=== PATIENT | male | born 1940 | race Caucasian/White ===

== ENCOUNTER 2023-05-07 14:43 | Emergency (ER) | payer MEDICARE, SELFPAY ==
--- NOTE | ~2023-05-07 | XR_ITS ---
EXAMINATION: XR HAND, LEFT CLINICAL INFORMATION: Positive fracture at urgent care COMPARISON: None available. TECHNIQUE: PA, lateral, and oblique views of the left hand. FINDINGS: No acute fracture or dislocation. Arthritis at the IP joints, first MCP and RESIDENTIAL joints with joint space narrowing and osteophyte formation. There is also some joint space narrowing at the second MCP joint. Soft tissues are unremarkable. XR/XR hand LT min 3V IMPRESSION: Arthritis. No fracture or dislocation.
[2023-05-07 15:17] VITALS: BP 174/75; PULSE 78; RESP 12; TEMP 36.4; O2SAT 98; BMI 25.3
--- NOTE | 2023-05-07 16:09 | ED_ITS ---
HPI - General Adult General Chief complaint: Wound/Laceration Stated complaint: open fx l ring finger Time Seen by Provider: 05/07/23 14:54 Source: patient Mode of arrival: ambulatory Limitations: no limitations History of Present Illness HPI narrative: Patient is an 83-year-old right-hand dominant male presenting to the emergency department from urgent care with a laceration and ecchymosis to left 4th finger. Patient states that he was mowing his lawn up hill when the lawnmower began to tip. He states that instead of letting go of the handle he attempted to correct the lawnmower and in the process got his finger caught between the handle and the safety stop mechanism of the lawnmower. He continued to mow his lawn until it was completed. He was evaluated urgent care where he was told that he had a distal phalanx fracture and was referred to the ED. He reports his tetanus is up-to-date, has had the vaccine within the last year. Denies any other injuries. MD complaint: Finger injury Onset (ago): hour(s) Location: upper extremity Severity: moderate Quality: aching Pain Consistency: constant Relieving factors: rest Exacerbating factors: movement Associated symptoms: denies other symptoms Treatments prior to arrival: none Related Data Previous Rx's Medication Instructions Recorded amoxicillin 875 mg-potassium 1 tab PO BID #14 tabs 05/07/23 clavulanate 125 mg tablet Allergies Allergy/AdvReac Type Severity Reaction Status Date / Time morphine [MORPHINE] Allergy Unknown HALLUCINATI Unverified 07/03/20 17:23 ONS Review of Systems Review of Systems: As per HPI. Yes all other systems are reviewed and are negative Constitutional: Constitutional: Reports as per HPI [facility] Social History Social History Alcohol intake: current Alcohol intake frequency: 0-2 drinks per day Alcohol type: wine Physical Exam ED Vital Signs: Vital Signs - 24 hr 05/07/23 15:17 Temperature 97.5 F Pulse Rate 78 Respiratory Rate 12 Blood Pressure 174/75 H Pulse Oximetry 98 Oxygen Delivery Method Room Air BMI result Body Mass Index 25.3 Vital signs have been reviewed and appear to be correct. Blood pressure e levated, likely secondary to pain. Heart rate normal. Respiratory rate normal. Temperature normal. Oxygen saturation normal. Const General: cooperative, healthy appearing and no acute distress Orientation/consciousness: oriented to person, oriented to place, oriented to time and patient oriented x3 Limitations: no limitations HENMT Head: Yes normocephalic and Yes atraumatic Ears: external ears normal General nose exam: Normal external nose present Face and sinus: Yes face symmetric Mouth: oropharynx normal and moist mucous membranes Throat: Yes uvula midline Eyes Pupils: Equal, round and reactive pupils present Neck Neck: Yes normal visual inspection and Yes supple Resp Effort & Inspection: normal respiratory effort and able to speak in complete sentences Auscultation: clear to auscultation bilaterally Cardio Rate: regular rate Rhythm: regular rhythm Heart sounds: S1 normal heart sound present and S2 normal heart sound present GI Palpation (GI): Soft to palpation and nontender Auscultation: normoactive bowel sounds General: Yes no CVA tenderness Back/Spine/Pelvis Back: no CVA tenderness Skin General skin exam: elasticity normal and turgor normal Neuro General: oriented to person, oriented to place, oriented to time, patient oriented x3, moves all extremities, no focal motor deficits and CN's II-XI intact bilaterally Cranial nerves: Yes Equal, round and reactive pupils present Cognition (Neuro): normal cognition Extrem General: Yes full ROM, Yes no pedal edema and Yes no calf tenderness Left upper extremity: hand Details: normal capillary refill, neuromotor exam normal, neurosensory exam normal, tendon exam normal, tenderness Location: of the 4th digit Location: at the distal phalanx, vascular exam Details: normal capillary refill, normal ROM of fingers and laceration 4th digit dorsal aspect distal Details: linear and superficial Psych Mental Status: mental status grossly normal Affect: normal affect Thought process: Normal thought process present Procedures Laceration Laceration 1: Site: hand (4th finger) Side (If applicable): left Size (cm): 1 Description: linear Depth: simple, single layer Local Anesthetic: lidocaine 1% Amount of anesthesia used (mL): 1 Pre-repair: wound explored, irrigated extensively and deep structures intact Skin layer closed with: other (prolene) Size (cm): 5-0 (3 sutures 5.0, suture closest to nail 6.0) Number of sutures: 4 Technique: simple, interrupted Medical Decision Making Medical Decision Making MDM Narrative: Patient is an 83-year-old right-hand dominant male presenting to the emergency department from urgent care with a laceration and ecchymosis to left 4th finger. On exam patient is awake, A+Ox3, VS WNL, afebrile, normal neurological exam without focal deficits, laceration to dorsal aspect of distal tip of left 4th finger, ecchymosis to palmar aspect of distal tip of left 4th finger, tenderness to distal tip as well, normal capillary refill. Given reported symptoms and physical exam findings, initial differential includes open fracture, laceration. X-ray here notable for arthritis, no fracture or dislocation. My interpreta tion is questionable distal phalanx fracture of left 4th finger. Case discussed with geovanni Juarez. She feels blood cultures or washout unnecessary at this time but does advise one dose of IV abx here, then discharge home on PO antibiotics with outpatient ortho follow up. Unable to obtain IV access after multiple attempts by nursing, will medicate patient with p.o. Augmentin in the ED prior to discharge. Laceration repaired as per procedure note, patient advised to have sutures removed in 10-14 days. All results discussed with patient and all questions answered. Return precautions discussed at bedside. Instructed patient to follow-up with PCP as well. Patient verbalized understand ing of an agreement with plan. Differential Diagnosis Differential Diagnoses: The differential diagnosis associated with the presentation includes As per MDM. Consult Healthcare Provider Management of the patient was discussed with: Paper Cup Handle Machine Operator (geovanni Juarez) Lab Data [facility] Lab Attestation statement: I reviewed the patient's lab results. As per [facility] 05/07/23 16:41 05/07/23 16:41 Labs: Lab Results 05/07/23 05/07/23 Range/Units 16:41 16:41 Sodium 141 (135-145) mmol/L Potassium 4.9 (3.3-5.1) mmol/L Chloride 105 (96-108) mmol/L Carbon Dioxide 24 (22-29) mmol/L Anion Gap 17 (12-20) BUN 28 H (9-16) mg/dL Creatinine 0.94 (0.5-1.4) mg/dL Estim Creat Clear Calc 52.7 Estimated GFR > 60 Random Glucose 97 (60-115) mg/dL Lactic Acid 1.3 (0.5-2.0) mmol/L Calcium 10.3 H (8.4-10.2) mg/dL Independent Interpretation I performed an independent interpretation of an: Plain X-Ray Interpretation: Possible distal phalanx fracture of left 4th finger Radiology Impression Discussion of test interpretation with radiology: I have reviewed the radiologist's reading. Radiologist Impression: FINDINGS: No acute fracture or dislocation. Arthritis at the IP joints, first MCP and LONGTERM joints with joint space narrowing and osteophyte formation. There is also some joint space narrowing at the second MCP joint. Soft tissues are unremarkable.? XR/XR hand LT min 3V IMPRESSION: Arthritis. No fracture or dislocation. External Record Review External record reviewed: Inpatient record, Office record and Outpatient record Prescription Management I considered prescription management with: Antibiotic Discharge Plan Discharge Clinical Impression: Crushing injury of distal finger, Laceration Patient Disposition: Home, Self-Care Instructions: Laceration (DC), Crush Injury (ED) Additional Instructions: You have been evaluated in the emergency department today for a laceration and crush injury to your left 4th finger. Your x-ray here did not show evidence of a fracture. Your laceration was repaired in the emergency department with sutures. Please keep the area surrounding the laceration clean and dry and keep dressing in place for the next 24 hours. After that please change the dressing and assess the wound daily. Keep the area out of direct sunlight for the next 6 months to help prevent scarring. You should have the sutures removed in 10-14 days. If you develop fever, redness, swelling at the site of your laceration, or thick yellow drainage please come back to the ER for a wound check. Please contact orthopedics for follow up appointment. Prescriptions: New amoxicillin-pot clavulanate 875-125 mg tablet 1 tab PO BID Qty: 14 0RF Referrals: [facility] [place] [facility] [Provider Group]
--- OUTSIDE RECORDS SUMMARY | 2023-05-07 16:39 | XMS_ITS | Continuity of Care Document ---
Author Name Unknown Organization [facility] Address [address] [place] [address]- Care Team Providers Care Doughnut Batter Mixer Name Role Phone Binu Campos MD Primary Care Physician [phone] [place] [facility] [place]s): 11/24/22 - 12/24/22 [facility] [address] [place], [place] [address] Attending Physician: Admtr, Ar8 Allergies, Adverse Reactions, Alerts Substance Reaction Severity Status morphine Active Immunizations Given and Recorded Vaccine Date Status Refusal Reason influenza virus vaccine, inactivated 08/10/22 Jeronimo rded influenza virus vaccine, inactivated 07/28/21 Jeronimo rded influenza virus vaccine, inactivated 07/18/20 Jeronimo rded influenza virus vaccine, inactivated 1 08/31/18 Re corded influenza virus vaccine, inactivated 08/23/16 Jeronimo rded influenza virus vaccine, inactivated 2 08/12/15 Gi navjot influenza virus vaccine, inactivated 08/01/14 Jeronimo rded influenza virus vaccine, inactivated 07/31/14 Jeronimo rded influenza virus vaccine, inactivated 3 07/23/13 Gi navjot influenza virus vaccine, inactivated 4 06/17/12 Gi navjot influenza virus vaccine, inactivated 5 07/22/11 Gi navjot influenza virus vaccine, inactivated 6 07/02/10 Gi navjot [id number] 12y+ bivalent booster vax 06/28/22 Recorded SARS-CoV-2 mRNA ([id number]) vax 01/28/22 Recorded SARS-CoV-2 (COVID-19) mRNA BNT-162b2 vac 07/28/21 Recorded SARS-CoV-2 (COVID-19) mRNA BNT-162b2 vac 11/10/20 Recorded pneumococcal 13-valent vaccine 09/12/19 Recorded pneumococcal 13-valent vaccine 7 08/13/15 Recorded Influenza Virus Vaccine (oldterm) 08/20/19 Recorde d Influenza Virus Vaccine (oldterm) 8 09/07/06 Given tetanus/diphtheria/pertussis, acel(Tdap) 04/11/13 Recorded Pneumococcal Poly (PPV23) (oldterm) 09/23/06 Given tetanus-diphtheria toxoids (Td) 9 09/23/06 Given 1Result Comment: [11/27/2018] Meraryy 2Result Comment: [08/12/2015] given w/o incident 3Result Comment: [07/23/2013] given w/out incident 4Admin Note: vis sheet given. 5Admin Note: given w/out incident/VIS given 6Admin Note: given by Jaki [facility] 8Admin Note: WORK 9Admin Note: [facility] Medications amLODIPine-benazepril 5 mg-20 mg oral capsule See Instructions, 1 capsule By Mouth twice Daily, 0 Refills, Maintenance, 10/22/15 15:49:57, Capsule Start Date: 10/22/15 Status: Ordered atorvastatin 80 mg oral tablet 1 tablet = 80 mg, By Mouth, Daily, # 30 tablet, 0 Refills, Maintenance, Tablet Start Date: 11/25/17 Status: Ordered CPAP with supplies: mask, tubing, filters, head gear, chin strap, and water chamber CPAP with supplies: mask, tubing, filters, head gear, chin strap, and water chamber, See Instructions, # 1 each, Refills 12, Tot. Refills 12, Maintenance, use as directed in home diagnosis: obstructive sleep apnea length of need: lifetime, 09/03... Start Date: 09/03/15 Status: Ordered duloxetine 30 mg oral enteric coated capsule 1 capsule, By Mouth, Daily, # 90 capsule, 3 Refills, [email or web address], 165.1, cm, 03/30/22 14:01:00 EDT, Height Start Date: 04/20/22 Status: Ordered levothyroxine 0.025 mg oral tablet 1.5 tablet, By Mouth, Daily, # 135 tablet, 3 Refills, Maintenance, 08/11/22 9:23:00 EDT, [email or web address], 165.1, cm, 03/30/22 14:01:00 EDT, Height Start Date: 08/11/22 Status: Ordered MiraLax oral powder for reconstitution = 17 Gm, By Mouth, Daily, dissolve in water before taking, # 255 Gm, 0 Refills, Maintenance, 11/25/17 13:38:55, REC Powder Start Date: 11/25/17 Status: Ordered Multivitamin With Minerals See Instructions, one tablet By Mouth daily, 0 Refills, Maintenance, 03/22/16 11:09:13 Start Date: 03/22/16 Status: Ordered omeprazole 20 mg oral enteric coated capsule 1 capsule = 20 mg, By Mouth, 2 times a day, # 60 each, 0 Refills, Maintenance, EC Capsule Start Date: 08/17/13 Status: Ordered Problem List Condition Confirmation Course Effective Dates Status H ealth Status Informant Cancer of prostate Confirmed Active Carotid artery stenosis Confirmed Active Chronic sinusitis Confirmed Active CVA - Cerebrovascular accident Confirmed Active Gastroesophageal reflux disease with hiatal hernia Confirmed Active Hyperglycemia Confirmed Active Hyperlipidemia Confirmed Active Hypertension Confirmed Active Hypothyroidism Confirmed Active Irritable bowel Confirmed Active Lumbar radiculopathy Confirmed Active Lumbar spinal stenosis Confirmed Active Patent foramen ovale Confirmed Active Polyp of colon Confirmed Active Prostatectomy Confirmed Active Sleep apnea Confirmed Active Social History Social History Type Response Smoking Status Never smoker; Tobacc o user in household: No entered on: 02/11/14 Sex Hospital Consult note * Event Display: Inpatient Consult Note, Non-BH Authored Date: Note * Event Display: Non BH Lab Results Authored Date: * Event Display: Non BH Lab Results Authored Date: * Event Display: CT Scan Neck, Non- BH Authored Date: * Event Display: Non BH Lab Results Authored Date: * Event Display: Cardiology Office Note, Non-BH Authored Date: * Event Display: Non BH Cardiovascular Results Authored Date: * Event Display: Cardiology Office Note, Non-BH Authored Date: * Event Display: Non BH Cardiovascular Results Authored Date: * Flores Singh: PERFORM Event Display: Radiology Results Scanned Authored Date: [id number] * Flores Singh: PERFORM Event Display: Radiology Results Scanned Authored Date: [id number] * Flores Tong: PERFORM Event Display: Radiology Results Scanned Authored Date: [id number] * Bee Fournier: PERFORM Event Display: Cardiovascular Results Scanned Authored Date: Cardiology Consult note * Event Display: Consult Note Cardiology Authored Date: Patient Care team information Care Team Personnel Name: Binu Campos MD Position: [facility] Primary Care Physician Member Role: PCP Address: Address: [address] [place] [address] Adult & [place] [address]- Care Team Related Persons Name: COURTNEY LLANES Address: home [address] [place] [id number]
--- OUTSIDE RECORDS SUMMARY | 2023-05-07 16:39 | XMS_ITS | Continuity of Care Document ---
Author Name Unknown Organization [facility] Address [address] [place] [address]- Care Team Providers Care Box Cutter Name Role Phone Binu Campos MD Primary Care Physician [phone] [place] [facility] [place]19 [facility] [address] [place] [address]- [facility] Encounter Diagnosis CVA - Cerebrovascular accident(Discharge Diagnosis) - 12/03/19 Cancer of prostate(Discharge Diagnosis) - 12/03/19 Chronic sinusitis(Discharge Diagnosis) - 12/03/19 Gastroesophageal reflux disease with hiatal hernia(Discharge Diagnosis) - 12/03/19 Irritable bowel(Discharge Diagnosis) - 12/03/19 Attending Physician: Biun Campos MD Allergies, Adverse Reactions, Alerts Substance Reaction Severity Status morphine Active Immunizations Given and Recorded Vaccine Date Status Refusal Reason pneumococcal 13-valent vaccine 09/12/19 Recorded pneumococcal 13-valent vaccine 1 08/13/15 Recorded Influenza Virus Vaccine (oldterm) 08/20/19 Recorde d Influenza Virus Vaccine (oldterm) 2 09/07/06 Given influenza virus vaccine, inactivated 3 08/31/18 Re corded influenza virus vaccine, inactivated 4 08/12/15 Gi navjot influenza virus vaccine, inactivated 07/31/14 Jeronimo rded influenza virus vaccine, inactivated 5 07/23/13 Gi navjot influenza virus vaccine, inactivated 6 06/17/12 Gi navjot influenza virus vaccine, inactivated 7 07/22/11 Gi navjot influenza virus vaccine, inactivated 8 07/02/10 Gi navjot Pneumococcal Poly (PPV23) (oldterm) 09/23/06 Given tetanus-diphtheria toxoids (Td) 9 09/23/06 Given [facility] Note: [facility] 3Result Comment: [11/27/2018] Meraryy 4Result Comment: [08/12/2015] given w/o incident 5Result Comment: [07/23/2013] given w/out incident 6Admin Note: vis sheet given. 7Admin Note: given w/out incident/VIS given 8Admin Note: given by aJki 9Admin Note: [facility] Medications amLODIPine-benazepril [...] lifetime, 09/03... Start Date: 09/03/15 Status: Ordered Cymbalta 30 mg oral enteric coated capsule 1 capsule = 30 mg, By Mouth, Daily, # 90 capsule, 3 Refills, Maintenance, 05/02/19 15:25:08 EDT, Capsule Start Date: 05/02/19 Stop Date: 04/26/20 Status: Ordered Levoxyl 0.025 mg oral tablet See Instructions, one and a half By Mouth Daily, # 135 each, 0 Refills, Maintenance, 11/27/19 8:40:00 EST, [facility], Labwork and office visit needed for further refills., 158, cm, 08/15/1910:51:00 EDT, Height Start Date: 11/27/19 Status: Ordered MiraLax oral powder for reconstitution [...] Date: 08/17/13 Status: Ordered Problem List Condition Effective Dates Status Health Status Inform ant Cancer of prostate(Confirmed) Active Carotid artery stenosis(Confirmed) Active Chronic sinusitis(Confirmed) Active CVA - Cerebrovascular accident(Confirmed) Active Gastroesophageal reflux dise ase with hiatal hernia(Confirmed) Active Hyperglycemia(Confirmed) Active Hyperlipidemia(Confirmed) Active Hypertension(Confirmed) Active Hypothyroidism(Confirmed) Active Irritable bowel(Confirmed) Active Lumbar radiculopathy(Confirmed) Active Lumbar spinal stenosis(Confirmed) Active Patent foramen ovale(Confirmed) Active Polyp of colon(Confirmed) Active Prostatectomy(Confirmed) Active Sleep apnea(Confirmed) Active Diagnosis Diagnosis Type Effective Dates Health Status Clinical Service Informant CVA - Cerebrovascular accident Discharge Diagnosis 12/03/19 Cancer of prostate Discharge Diagnosis 12/03/19 Chronic sinusitis Discharge Diagnosis 12/03/19 Gastroesophageal reflux disease with hiatal hernia Discharge Diagnosis 12/03/19 Irritable bowel Discharge Diagnosis 12/03/19 Vital Signs Most recent to oldest [Reference Range]: 1 Height 158.00 cm (12/03/19 1:32 PM) Weight 70.5 kg (12/03/19 1:32 PM) Oxygen Saturation [94-100 %] 95 % (12/03/19 1:32 PM) Pulse Rate [55-90 bpm] 71 bpm (12/03/19 1:32 PM) Body Mass Index [18.5-24.99] 28.24 *H* (12/03/19 1:32 PM) Blood Pressure [90-138/55-84 mm Hg] 126/ 80mm Hg (12/03/19 1:32 PM) Blood pressure sites Arm, left (12/03/19 1:32 PM) Weight Obtained Via Standing scale (12/03/19 1:32 PM) Social History Social History Type Response Smoking Status Never smoker; Tobacc o user in household: No entered on: 02/11/14 Sex
--- OUTSIDE RECORDS SUMMARY | 2023-05-07 16:39 | XMS_ITS | Continuity of Care Document ---
Author Name Unknown Organization [facility] Address [address] [place] [address]- Care Team Providers Care Executive Search Consultant Name Role Phone Binu Campos MD Primary Care Physician [place] [facility] [place]11[place]20 - 02/18/20 [facility] [address] [address]- [facility] Attending Physician: Tamra THAPA, Marshal Heath Admitting Physician: Marshal Barboza MD Referring Physician: Binu Campos MD Allergies, Adverse Reactions, Alerts Substance [...] w/out incident/VIS given 8Admin Note: given by Jaki 9Admin Note: [facility] Medications amLODIPine-benazepril [...] half By Mouth Daily, # 135 each, 1 Refills, Maintenance, 02/14/20 10:34:00 EDT, [facility], 165.1, cm, 02/08/20 10:49:00 EDT, Height, 68, kg, 12/04/19 9:25:00 EST, Dry Weight Start Date: 02/14/20 Status: Ordered MiraLax oral powder for reconstitution [...] colon(Confirmed) Active Prostatectomy(Confirmed) Active Sleep apnea(Confirmed) Active Vital Signs Most recent to oldest [Reference Range]: 1 Height 165.1 cm (02/08/20 10:49 AM) Weight 70 kg (02/08/20 10:49 AM) Body Mass Index [18.5-24.99] 25.68 *H* (02/08/20 10:49 AM) Social History Social History Type Response Smoking Status Never smoker; Tobacc o user in household: No entered on: 02/11/14 Sex
--- OUTSIDE RECORDS SUMMARY | 2023-05-07 16:39 | XMS_ITS | Continuity of Care Document ---
Author Name [facility] Address [address] [place] [address] Organization [facility] Address [address] [place] [address] Support Name Relationship Address Phone AntonBinu lucio Primary Care Provider Unknown Rashid Slaughter Attending Provider [address] [address] Binu Campos Primary Care Provider Unknown Trino Beach Attending Provider [address] [address] Allergies, Adverse Reactions, Alerts Allergen Type Severity Reaction Last Updated Verified Status morphine Adverse Reaction .hallucinations December 21, 2017 Y Active Medications No medication information available. Problem List No problem information available. Procedures Procedure Date Status NINV Carotid duplex scan comp September 03, 2019 completed Relevant Diagnostic Tests and/or Laboratory Data No known relevant diagnostic tests, laboratory data, and/or discharge summary. Chief Complaint and Reason for Visit Encounter Admit Date Chief Complaint Reason for V isit Departed Clinical September 03, 2019 11:37am Hospital Discharge Instructions No known hospital discharge instructions. Encounters Encounter Facility Location Admit/Visit Date Discharge/Departure Date Attending Provider Departed Clinical [place] [address] Vasc Surg September 03, 2019 11:37am September 03, 2019 11:38am Trino Felder Functional Status No known functional status. Immunizations No known immunizations. Payers Payer Name Policy Type Covered Republican Covered Republican Id Relationship Subscriber Subscriber Id [employer] Jeff Levin [id number] Self / Same As Patient Jeff Levin [id number] Medicare A&B Medicare Primary Jeff Alvareztheresa [id number] Self / Same As Patient Jeff Levin [id number] Self Pay Personal Payment ([place] - No Insurance) Plan of Care No Known Plan of Care Information Social History No known social history. Vital Signs No known vital signs results.
--- OUTSIDE RECORDS SUMMARY | 2023-05-07 16:39 | XMS_ITS | Continuity of Care Document ---
Author Name Unknown Organization [facility] Address [address] [place] [address]- Care Team Providers Care Silk Conditioner Name Role Phone Binu Campos MD Primary Care Physician En[place] [facility] [place] [facility] [place](s[place] 03/11/21 - 03/18/21 [facility] [address] [place], [place] [address] Encounter Diagnosis CVA - Cerebrovascular accident(Discharge Diagnosis) - 03/11/21 Cancer of prostate(Discharge Diagnosis) - 03/11/21 Hypertension(Discharge Diagnosis) - 03/11/21 Hyperlipidemia(Discharge Diagnosis) - 03/11/21 Hyperglycemia(Discharge Diagnosis) - 03/11/21 Hypothyroidism(Discharge Diagnosis) - 03/11/21 Sleep apnea(Discharge Diagnosis) - 03/11/21 Lumbar spinal stenosis(Discharge Diagnosis) - 03/11/21 Irritable bowel(Discharge Diagnosis) - 03/11/21 Gastroesophageal reflux disease with hiatal hernia(Discharge Diagnosis) - 03/11/21 Attending Physician: Binu Campos MD Allergies, Adverse Reactions, [...] [facility] 2Admin Note: WORK 3Result Comment: [11/27/2018] Zee 4Result Comment: [08/12/2015] given w/o incident 5Result [...] mg, By Mouth, Daily, # 90 capsule, 0 Refills, Maintenance, 01/19/21 16:45:00 EDT, Capsule, [facility], 165.1, cm, 02/08/20 10:49:00 EDT, Height, 68, kg, 12/04/19 9:25:00 EST, Dry Weight Start Date: 01/19/21 Stop Date: 04/19/21 Status: Ordered Levoxyl 0.025 mg oral tablet See Instructions, one and a half By Mouth Daily, # 135 each, 0 Refills, Maintenance, 02/08/21 14:19:00 EDT, [facility], 165.1, cm, 02/08/20 10:49:00 EDT, Height, 68, kg, 12/04/19 9:25:00 EST, Dry Weight Start Date: 02/08/21 Status: Ordered MiraLax oral powder for reconstitution [...] Informant CVA - Cerebrovascular accident Discharge Diagnosis 03/11/21 Cancer of prostate Discharge Diagnosis 03/11/21 Hypertension Discharge Diagnosis 03/11/21 Hyperlipidemia Discharge Diagnosis 03/11/21 Hyperglycemia Discharge Diagnosis 03/11/21 Hypothyroidism Discharge Diagnosis 03/11/21 Sleep apnea Discharge Diagnosis 03/11/21 Lumbar spinal stenosis Discharge Diagnosis 03/11/21 Irritable bowel Discharge Diagnosis 03/11/21 Gastroesophageal reflux disease with hiatal hernia Discharge Diagnosis 03/11/21 Vital Signs Most recent to oldest [Reference Range]: 1 Height 165.1 cm (03/11/21 3:11 PM) Weight 72 kg (03/11/21 3:11 PM) Oxygen Saturation [94-100 %] 97 % (03/11/21 3:11 PM) Pulse Rate [55-90 bpm] 60 bpm (03/11/21 3:11 PM) Body Mass Index [18.5-24.99] 26.41 *H* (03/11/21 3:11 PM) Blood Pressure [90-138/55-84 mm Hg] 130/ 60mm Hg (03/11/21 3:11 PM) Temperature [96.8-100.4 DegF] 98.2 DegF (03/11/21 3:11 PM) Mode of Delivery (Oxygen) Room air (03/11/21 3:11 PM) Blood pressure sites Arm, left (03/11/21 3:11 PM) Temperature Route Temporal (03/11/21 3:11 PM) Weight Obtained Via Standing scale (03/11/21 3:11 PM) Social History Social History Type Response Smoking Status Never smoker; Tobacc o user in household: No entered on: 02/11/14 Sex
--- OUTSIDE RECORDS SUMMARY | 2023-05-07 16:39 | XMS_ITS | Continuity of Care Document ---
Author Name Unknown Organization [facility] Address [address] [place] [address]- Care Team Providers Care Campus Security Officer Name Role Phone Binu Campos MD Primary Care Physician [phone] Encounter [facility] [place] Date(s): 11/23/22 - 12/23/[address] [address]- Attending Physician: Cat Leary Admitting Physician: Cat Leary Referring Physician: AdmtrCat Allergies, Adverse Reactions, Alerts Substance Reaction Severity [...] virus vaccine, inactivated 6 07/02/10 Gi navjot [id number] 12y+ bivalent booster vax 06/28/22 Recorded SARS-CoV-2 mRNA (gdhsjsx-rxoy-gepjc) vax 01/28/22 Recorded SARS-CoV-2 (COVID-19) mRNA BNT-162b2 [...] Mouth, Daily, # 90 capsule, 3 Refills, [facility], 165.1, cm, 03/30/22 14:01:00 EDT, Height Start Date: 04/20/22 Status: Ordered levothyroxine 0.025 mg oral tablet 1.5 tablet, By Mouth, Daily, # 135 tablet, 3 Refills, Maintenance, 08/11/22 9:23:00 EDT, [facility], 165.1, cm, 03/30/22 [...] in household: No entered on: 02/11/14 Sex Note * Event Display: Non Cardiovascular Results Authored Date: * Event Display: Cardiology Office Note, Non- Authored Date: * Event Display: Non Cardiovascular Results Authored Date: Patient Care team information Care Team Personnel Name: Andres THAPA, Binu De Oliveira Position: [facility] Primary Care Physician Member Role: PCP Address: Address: [address] [place] [address] Adult & [place] [address]- Care Team Related Persons Name: COURTNEY LLANES Address: home [address] [place] [address]
--- OUTSIDE RECORDS SUMMARY | 2023-05-07 16:39 | XMS_ITS | Continuity of Care Document ---
Author Name Unknown Address [address] [place] [address] Phone Organization [facility] Address [address] [place] [address] Phone Care Team Providers Care Childcare Center Director Name Role Phone Binu Campos Primary Care Provider Rashid Sullivan Attending Provider Trino Felder Attending Provider Allergies, Adverse Reactions, Alerts Allergen Type Severity Reaction Last Updated Verified Status morphine Adverse Reaction .hallucinations Dec ch 2017 9:34am Yes Active Medications No medication information available. Problems No problem information available. Procedures Procedure Date Performed Status NINV Carotid duplex scan comp September 01 0 12:00am completed Relevant Diagnostic Tests and/or Laboratory Data Diagnostic Imaging Reports Report Dictated Date/Time Dictated By Status Noninvasive Vascular Evaluation September 01, 2020 6:21pm Rashid Goodwin MD completed [facility] Division of Vascular Surgery [address] [address] Patient Name: Jeff Llanes Medical Record#: [id number] Address: [address] [place] [address] City/State/Zip: [place] [address]: Ray Goodwin MD Insurance: Medicare A&B /Age/Sex: 1940/80/M BC Medex Admit/Reg Date: 09/01/[address]: Trino Stallworth i, MD Location: VAS.ATV2EM/ PCP: Date of Service: 09/01/20 Order (s): NINV Carotid duplex scan comp CPT Code: 55970 Report Number: [id number] Reason for Exam: FU Department: Vascular Surgery Vascular Lab Patient: [id number] (JEFF LLANES) CPT Code: 87566 ICD-9: Referring Physician: Trino Felder CONCLUSION Impression Right: The common carotid waveform is within normal limits. Together with the spectral Doppler velocities, this correlates with a 100% stenosis of the right internal carotid artery as compared to 100% reported in the last study dated 09/03/2019. The right vertebral artery has a waveform which is high resistance. Left: The common carotid waveform is within normal limits. Together with the spectral Doppler velocities, this correlates with a 50 - 69% stenosis of the left internal carotid artery as compared to 50 - 69% reported in the last study dated 09/03/2019. The left vertebral artery has a waveform which is antegrade. FINDINGS Right PSV (cm/s) EDV (cm/s) ICA/CCA %Stenosis Flow CCA Prox. 49 0 CCA Mid. 106 9 CCA Dist. 61 0 ICA Prox. 0 0 0.00 100% ECA 93 6 Vertebral 27 0 high resistance Left PSV (cm/s) EDV (cm/s) ICA/CCA %Stenosis Flow CCA Prox. 91 18 CCA Mid. 73 14 CCA Dist. 76 14 ICA Prox. 196 46 2.67 50 - 69% ICA Mid. 72 23 0.98 ICA Dist. 65 19 0.89 ECA 125 12 Vertebral 51 0 antegrade CLINICAL Introduction JEFF LLANES is a [age] year old male who had a Cerebrovascular Duplex Scan, Complete Bilateral on 09/01/2020. SIGNATURE Electronically Signed by: Rashid Goodwin MD,RPVI on 2020-09-03 06:20:26 PM End of Report Dictated By: Rashid Goodwin MD 09/01/201820 Signed By: Rashid Goodwin MD 09/03/201820 TD/TT: 09/03/201820Tech: SVCCPACS cc: * Chief Complaint and Reason for Visit Chief Complaint US fu Encounters Encounter Location(s) Arrival/Admit Date Discharge/Depart Date Provider(s) Departed Clinical [facility] Surg Lab September 01, 2020 4:20pm September 01, 2020 4:21pm Rashid Goodwin MD Departed Clinical [facility] Vasc Surg September 01, 2020 4:21pm September 01, 2020 4:22pm Trino Felder MD Assessments No Assessments Information Available Functional Status No Functional Status information available Goals Goals may be documented in an alternate section. Mental Status No Mental Status Information Available Medical Equipment No Medical Equipment Information available Insurance Providers Guarantor Jeff Llanes Address [address] [facility] [address] Contact Info. Home Phone: Payer Policy Id Coverage Id Subscriber's Name Subscriber Id Effective Date Expiration Date Medex [id number] Jeff Llanes [id number] Medicare A&B [id number] Jeff Llanes [id number] Self Pay Self N/A Social History Assigned Sex Male
--- OUTSIDE RECORDS SUMMARY | 2023-05-07 16:39 | XMS_ITS | Continuity of Care Document ---
Author Name Unknown Address [address] [place] [address] Phone Organization [facility] Address [address] [place] [address] Phone Care Team Providers Care Cook Apprentice Name Role Phone Bniu Campos Primary Care Provider Rashid Sullivan Attending [...] 01, 2020 6:21pm Rashid Goodwin MD completed [facility] Division of Vascular Surgery [address] [address] Patient Name: Jeff Llanes Medical Record#: [id number] Address: [address] [place] [address] City/State/Zip: [place] [address]: Ray Goodwin MD Insurance: Medicare A&B /Age/Sex: 1940/80/M BC Medex Admit/Reg Date: 09/01/[address]: Trino Stallworth i, MD Location: VAS.ATV2EM/ PCP: Date of Service: 09/01/20 Order (s): NINV Carotid duplex scan comp CPT Code: 46989 Report Number: [id number] Reason for Exam: FU Department: Vascular Surgery Vascular Lab Patient: [id number] (JEFF LLANES) CPT Code: 11801 ICD-9: Referring Physician: Trino Felder CONCLUSION Impression [...] Arrival/Admit Date Discharge/Depart Date Provider(s) Departed Clinical [facility] Surg Lab September 01, 2020 4:20pm September 01, 2020 4:21pm Rashid Goodwin MD Departed Clinical [facility] Vasc Surg September 01, 2020 4:21pm September 01, 2020 4:22pm Trino Felder MD Assessments No Assessments Information Available Functional Status No Functional Status information available Goals Goals may be documented in an alternate section. Mental Status No Mental Status Information Available Medical Equipment No Medical Equipment Information available Insurance Providers Guarantor Jeff Llanes Address [address] [facility] [address] Contact Info. Home Phone: Payer Policy Id Coverage Id Subscriber's Name Subscriber Id Effective Date Expiration Date Medex [id number] Jeff Llanes [id number] Medicare A&B [id number] Jeff Llanes [id number] Self Pay Self N/A Social History Assigned Sex Male
--- OUTSIDE RECORDS SUMMARY | 2023-05-07 16:39 | XMS_ITS | Continuity of Care Document ---
Author Name Unknown Organization [facility] Address [address] [place] [address]- Care Team Providers Care Hay Sorter Name Role Phone Binu Campos MD Primary Care Physician Encounter [facility] Date(s): 12/17/21 - 04/16/22 [facility] [address] [place], [place] [address] Attending Physician: Binu Campos MD Allergies, Adverse [...] duloxetine 30 mg oral enteric coated capsule See Instructions, TAKE 1 CAPSULE BY MOUTH DAILY., # 90 capsule, 1 Refills, [facility] # [facility], 165.1, cm, 03/11/21 15:11:00 EDT, Height, 68, kg, 12/04/19 9:25:00 EST, Dry Weight Start Date: 10/16/21 Status: Ordered Euthyrox 25 mcg (0.025 mg) oral tablet 1.5 tablet, By Mouth, Daily, # 135 tablet, 3 Refills, [facility] # [facility], 165.1, cm, 03/11/21 15:11:00 EDT, Height, 68, kg, 12/04/19 9:25:00 EST, Dry Weight Start Date: 07/27/21 Status: Ordered MiraLax oral powder for reconstitution [...] colon(Confirmed) Active Prostatectomy(Confirmed) Active Sleep apnea(Confirmed) Active Social History Social History Type Response Smoking Status Never smoker; Tobacc o user in household: No entered on: 02/11/14 Sex
--- OUTSIDE RECORDS SUMMARY | 2023-05-07 16:39 | XMS_ITS | Continuity of Care Document ---
Author Name Unknown Organization [facility] Address [address] [place] [address]- Care Team Providers Care Inserter Operator Name Role Phone Binu Campos MD Primary Care Physician Encounter [facility] [place] Date(s): 11/13/19 - 03/12/20 [facility] [address] [address] [facility] Attending Physician: Tamra THAPA, Marshal Heath Admitting [...]
--- OUTSIDE RECORDS SUMMARY | 2023-05-07 16:39 | XMS_ITS | Continuity of Care Document ---
Author Name Unknown Organization [facility] Address [address] [place] [address]- Care Team Providers Care Chip Bin Conveyor Tender Name Role Phone Bniu Campos MD Primary Care Physician En[place] [facility] [place] Date(s): 04/05/23 - 04/12/23 [facility] [address] [place] [address]- Encounter Diagnosis Medicare annual wellness visit, subsequent(Discharge Diagnosis) - 04/05/23 CVA - Cerebrovascular accident(Discharge Diagnosis) - 04/05/23 Hypertension(Discharge Diagnosis) - 04/05/23 Hyperlipidemia(Discharge Diagnosis) - 04/05/23 Hypothyroidism(Discharge Diagnosis) - 04/05/23 Hyperglycemia(Discharge Diagnosis) - 04/05/23 Carotid artery stenosis(Discharge Diagnosis) - 04/05/23 Cancer of prostate(Discharge Diagnosis) - 04/05/23 Patent foramen ovale(Discharge Diagnosis) - 04/05/23 Lumbar radiculopathy(Discharge Diagnosis) - 04/05/23 Gastroesophageal reflux disease with hiatal hernia(Discharge Diagnosis) - 04/05/23 Irritable bowel(Discharge Diagnosis) - 04/05/23 Attending Physician: Binu Campos MD Allergies, Adverse [...] 08/12/15 Gi navjot influenza virus vaccine, inactivated 10/16/14 Jeronimo rded influenza virus vaccine, inactivated 07/31/14 Jeronimo rded influenza virus vaccine, inactivated 3 07/23/13 Gi navjot influenza virus vaccine, inactivated 4 06/17/12 Gi navjot influenza virus vaccine, inactivated 5 07/22/11 Gi navjot influenza virus vaccine, inactivated 6 07/02/10 Gi navjot [id number] 12y+ bivalent booster vax 06/28/22 Recorded SARS-CoV-2 mRNA (odkyzkh-zptb-hbesi) vax 01/28/22 Recorded SARS-CoV-2 (COVID-19) mRNA BNT-162b2 vac 07/28/21 Recorded SARS-CoV-2 (COVID-19) mRNA BNT-162b2 vac 11/10/20 Recorded pneumococcal 13-valent vaccine 09/12/19 Recorded pneumococcal 13-valent vaccine 7 08/13/15 Recorded Influenza Virus Vaccine (oldterm) 08/20/19 Recorde d Influenza Virus Vaccine (oldterm) 8 09/07/06 Given tetanus/diphtheria/pertussis, acel(Tdap) 04/11/13 Recorded Pneumococcal Poly (PPV23) (oldterm) 09/23/06 Given tetanus-diphtheria toxoids (Td) 9 09/23/06 Given 1Result Comment: [11/27/2018] Zee 2Result Comment: [08/12/2015] given w/o incident 3Result [...] capsule, By Mouth, Daily, # 90 capsule, 1 Refills, Maintenance, 04/11/23 19:46:00 EDT, [facility], 165.1, cm, 04/05/23 13:55:00 EDT, Height Start Date: 04/11/23 Status: Ordered levothyroxine 0.025 mg oral tablet 1.5 tablet, By Mouth, Daily, # 135 tablet, 3 Refills, Maintenance, 08/11/22 9:23:00 EDT, [facility], 165.1, cm, 03/30/22 14:01:00 [...] Condition Confirmation Course Effective Dates Status H ealt Status Informant Cancer of prostate Confirmed Active [...] Prostatectomy Confirmed Active Sleep apnea Confirmed Active Diagnosis Diagnosis Type Effective Dates Health Status Clinical Service Informant Medicare annual wellness visit, subsequent Discharge Diagnosis 04/05/23 CVA - Cerebrovascular accident Discharge Diagnosis 04/05/23 Hypertension Discharge Diagnosis 04/05/23 Hyperlipidemia Discharge Diagnosis 04/05/23 Hypothyroidism Discharge Diagnosis 04/05/23 Hyperglycemia Discharge Diagnosis 04/05/23 Carotid artery stenosis Discharge Diagnosis 04/05/23 Cancer of prostate Discharge Diagnosis 04/05/23 Patent foramen ovale Discharge Diagnosis 04/05/23 Lumbar radiculopathy Discharge Diagnosis 04/05/23 Gastroesophageal reflux disease with hiatal hernia Discharge Diagnosis 04/05/23 Irritable bowel Discharge Diagnosis 04/05/23 Vital Signs Most recent to oldest [Reference Range]: 1 2 3 Height 165.1 cm (04/05/23 1:55 PM) 165.1 cm (04/05/23 1:25 PM) 165.1 cm (04/05/23 1:24 PM) Weight 69 kg (04/05/23 1:24 PM) Oxygen Saturation [94-100 %] 96 % (04/05/23 1:24 PM) Pulse Rate [55-90 bpm] 70 bpm (04/05/23 1:24 PM) Body Mass Index [18.5-24.99 kg/m2] 25.31 kg/m2 *H* (04/05/23 1:24 PM) Blood Pressure [90-138/55-84 mm Hg] 136/74mm Hg (04/05/23 1:55 PM) 141/65mm Hg *H* (04/05/23 1:25 PM) 145/66mm Hg *H* (04/05/23 1:24 PM) Mode of Delivery (Oxygen) Room air (04/05/23 1:24 PM) Blood pressure sites Arm, left (04/05/23 1:55 PM) Arm, left (04/05/23 1:25 PM) Arm, left (04/05/23 1:24 PM) Weight Obtained Via Standing scale (04/05/23 1:24 PM) Social History Social History Type Response Smoking Status Never smoker; Tobacc o user in household: No entered on: 02/11/14 Sex Note * Bee Gallegos: PERFORM, SIGN, VERIFY Event Display: Patient Education/Instruction Authored Date: [facility] *[facility] Adult [facility] Clinical Summary Name MERNA LLANES Age 83 Years 1940 PCP Andres THAPA, Binu De Oliveira PCP Visit Date 04/05/2023 13:00:00 Patient Instructions continue current medication, supplements, and cautious activity; specialty follow up as scheduled; call if any question or problem Additional Instructions: Scheduled Appointments?? Future Appointments ?*[place]??Electroplating Sales Representative??Cln [address] ?[place],??[place],??[address] ?Phone:??--?Fax:??-- ?Appt. Date:??05/02/2023?9:30 AM ?Scheduled Provider:??Tamra THAPA, Marshal Heath Follow-Up Instructions ?? Diagnosis Patent foramen ovale; Cerebral infarction, unspecified; Hypothyroidism, unspecified; Essential (primary) hypertension; Hyperlipidemia, unspecified; Radiculopathy, lumbar region; Occlusion and stenosis of bilateral carotid arteries; Gastro-esophageal reflux disease without esophagitis; Hyperglycemia, unspecified; Irritable bowel syndrome without diarrhea; Malignant neoplasm of prostate; Encounter for general adult medical examination without abnormal findings Medications: Please continue your medications until treatment is completed or stopped by your provider. Discuss any questions related to medications with your provider. Medications to Continue with No Changes These medications were not printed or sent to your pharmacy Amlodipine-Benazepril (amLODIPine-benazepril 5 mg-20 mg oral capsule) 1 capsule By Mouth twice Daily. Next Dose: Atorvastatin (atorvastatin 80 mg oral tablet) 1 tab(s) Oral Daily. Next Dose: Duloxetine (duloxetine 30 mg oral enteric coated capsule) 1 capsule Oral Daily. Refills: 3. Next Dose: Durable Medical Equipment (CPAP with supplies: mask, tubing, filters, head gear, chin strap, and water chamber) use as directed in home diagnosis: obstructive sleep apnea length of need: lifetime. Refills: 12. Next Dose: Levothyroxine (levothyroxine 0.025 mg oral tablet) 1.5 tab(s) Oral Daily. Refills: 3. Next Dose: Multivitamin With Minerals one tablet By Mouth daily. Next Dose: Omeprazole (omeprazole 20 mg oral enteric coated capsule) 1 capsule Oral twice a day. Next Dose: Polyethylene Glycol 3350 (MiraLax oral powder for reconstitution) 17 gram Oral Daily. dissolve in water before taking. Next Dose: Allergy Info:?? morphine Medications Given This Visit Future Orders ?No future orders Vital Signs Height 165.1 cm Weight 69 kg BMI 25.31 kg/m2 Blood Pressure 136 mm Hg/74 mm Hg Temperature Pulse Rate 70 bpm Respiratory Rate 02 Sat Mode of Delivery 96 %/Room air You can now view a summary of your hospital visit from the comfort of your home through a free online portal called [employer]. [employer] is a website that allows you to securely view your medical information including discharge summary, medications and follow-up visits. ??You can alsosend a secure electronic message to your doctor???s office to request appointments, renew medications or just ask a question. You can enroll at [email or web address] or register during your next office visit. Disclaimer:?? The information provided is of a general nature and is intended to be used in conjunction with the recommendations and advice of your health care practitioner. ??Every effort has been made to ensure that the information provided is accurate and complete at the time it is provided to you however, as your needs change, or, as new ??information becomes available, different or additional instructions may be required. If you have questions, please consult with your primary care provider or pharmacist, as appropriate. ??This information is not intended to serve as substitution for assessment and evaluation by a qualified health care provider. If you do not have a primary care provider, you may find a [facility] provider by calling [facility] [employer] [facility] at [phone]. For information about the plan of care including goals and instructions for your diagnosis, please see the patient education orders section of this document. Patient Education Materials?? The content of this educational material or handout may have been modified, supplemented, or adapted from its original content and format to support your individualized medical care. Patient Care team information Care Team Personnel Name: Binu Campos MD Position: S Physician - Primary Care Member Role: PCP Address: Address: [address] [place] [address] Adult [place] [address]- Care Team Related Persons Name: COURTNEY LLANES Address: [address] [address]
--- OUTSIDE RECORDS SUMMARY | 2023-05-07 16:39 | XMS_ITS | Continuity of Care Document ---
Author Name Unknown Address [address] [place] [address] Phone [facility] Address [address] [place] [address] Phone Care Team Providers Care Technical Sales Representatives Name Role Phone Binu Campos Primary Care Provider MD Rashid Sullivan Attending Provider Chief Complaint and Reason for Visit Chief Complaint US Allergies, Adverse Reactions, Alerts Allergen Type Severity Reaction Last Updated Verified Status morphine Adverse Reaction .hallucinations Dec 9:34am Yes Active Social History Smoking Status Unknown if ever smoked Additional Data Assigned Sex Male Procedures Procedure Date Performed Status NINV Carotid duplex scan comp August 31 12:00am completed Insurance Providers Guarantor Jeff Levin Address [address] [facility] [address] Contact Info. Home Phone: Payer Policy Id Coverage Id Subscriber's Name Subscriber Id Effective Date Expiration Date Medex [id number] [place] [id number] Medicare A&B [id number] [place] [id number] Self Pay Self N/A Encounters Encounter Location(s) Arrival/Admit Date Discharge/Depart Date Provider(s) Departed Clinical [facility] Surg Lab August 31, 2021 3:18pm August 31, 2021 3:19pm Rashid Goodwin MD
--- OUTSIDE RECORDS SUMMARY | 2023-05-07 16:39 | XMS_ITS | Continuity of Care Document ---
Author Name Unknown Address [address] [place] [address] Phone [facility] Address [address] [place] [address] Phone Care Team Providers Care Bull Ladle Tender Name Role Phone Binu Campos Primary Care Provider MD Rashid Sullivan Attending Provider [phone] Chief Complaint and Reason for Visit Chief Complaint US Allergies, Adverse Reactions, Alerts Allergen Type Severity Reaction Last Updated Verified Status morphine Adverse Reaction .hallucinations Dec 9:34am Yes Active Social History Smoking Status Unknown if ever smoked Additional Data Assigned Sex Male Travel History Date of Travel Location Procedures Procedure Date Performed Status NINV Carotid duplex scan comp August 30 12:00am completed Insurance Providers Guarantor Jeff Levin Address [address] [place] [address] Contact Info. Home Phone: Payer Policy Id Coverage Id Subscriber's Name Subscriber Id Effective Date Expiration Date BC Medex [id number] [place] [id number] Medicare A&B [id number] 23 [id number] [place] [id number] Self Pay Self N/A Encounters Encounter Location(s) Arrival/Admit Date Discharge/Depart Date Provider(s) Departed Clinical [facility] August 30, 2022 5:44pm August 30, 2022 5:45pm Rashid Goodwin MD
--- OUTSIDE RECORDS SUMMARY | 2023-05-07 16:39 | XMS_ITS | Continuity of Care Document ---
Author Name Unknown Address [address] [place] [address] Phone [facility] Address [address] [place] [address] Phone Care Team Providers Care Chain Saw Mechanic Name Role Phone Binu Campos Primary Care [...] completed Insurance Providers Guarantor Jeff Levin Address [address] [place] [address] Contact Info. Home Phone: Payer Policy Id Coverage Id Subscriber's Name Subscriber Id Effective Date Expiration Date BC Medex [id number] [place] [id number] Medicare A&B [id number] 23 [id number] [place] [id number] Self Pay Self N/A Encounters Encounter Location(s) Arrival/Admit Date Discharge/Depart Date Provider(s) Departed Clinical [facility] August 30, 2022 5:44pm August 30, 2022 5:45pm Rashid Goodwin MD
--- OUTSIDE RECORDS SUMMARY | 2023-05-07 16:39 | XMS_ITS | Continuity of Care Document ---
Author Name Unknown Organization [facility] Address [address] [place] [address]- Care Team Providers Care Production Administrative Assistant Name Role Phone Binu Campos MD Primary Care Physician Encounter [facility] [place] Date(s): 02/11/20 - 03/12/20 [facility] [address] [address]- [facility] Attending Physician: Cat Leary Admitting Physician: Cat Leary Referring Physician: Cat Leary Allergies, Adverse Reactions, Alerts Substance Reaction Severity [...] oldest [Reference Range]: 1 Height 158.00 cm (04/04/19 4:40 PM) Weight 68.0 kg (04/04/19 4:40 PM) Social History Social History Type Response Smoking Status Never smoker; Tobacc o user in household: No entered on: 02/11/14 Sex
--- OUTSIDE RECORDS SUMMARY | 2023-05-07 16:39 | XMS_ITS | Continuity of Care Document ---
Author Name Unknown Organization [facility] ter Address [address] [place] [address]- Care Team Providers Care Ruby On Rails Web Developer Name Role Phone Andres THAPA, Binu De Oliveira Primary Care Physician [phone] Encounter [facility] [place] Date(s): 12/04/19 - 12/04/[address] [address]- [facility] Discharge Disposition: A-D/C Home Attending Physician: Robbie Mcclelland MD Admitting Physician: Robbie Mcclelland MD Referring Physician: Robbie Mcclelland MD Allergies, Adverse Reactions, Alerts Substance Reaction [...] 135 each, 0 Refills, Maintenance, 11/27/19 8:40:00 [facility], Labwork and office visit [...] Range]: 1 2 3 Height 165.1 cm (12/04/19 9:25 AM) Oxygen Saturation [94-100 %] 99 % (12/04/19 10:07 AM) 99 % (12/04/19 9:25 AM) Pulse Rate [55-90 bpm] 58 bpm (12/04/19 10:13 AM) 59 bpm (12/04/19 10:07 AM) 56 bpm (12/04/19 9:25 AM) Blood Pressure [90-138/55-84 mm Hg] 135/69mm Hg (12/04/19 10:13 AM) 132/69mm Hg (12/04/19 10:07 AM) 116/95mm Hg (12/04/19 9:25 AM) Respiratory Rate [16-30 br/min] 20 br/min (12/04/19 10:13 AM) 20 br/min (12/04/19 10:07 AM) 18 br/min (12/04/19 9:25 AM) Temperature [96.8-100.4 DegF] 98.2 DegF (12/04/19 9:25 AM) Mode of Delivery (Oxygen) Room air (12/04/19 10:13 AM) Room air (12/04/19 10:07 AM) Room air (12/04/19 9:25 AM) Blood pressure sites Arm, left (12/04/19 10:13 AM) Arm, left (12/04/19 10:07 AM) Arm, left (12/04/19 9:25 AM) Temperature Route Temporal (12/04/19 9:25 AM) Dry Weight 68.0 kg (12/04/19 9:25 AM) Dry Weight Obtained Via Patient/family s tated (12/04/19 9:25 AM) Social History Social History Type Response Smoking Status Never smoker; Tobacc o user in household: No entered on: 02/11/14 Sex
--- OUTSIDE RECORDS SUMMARY | 2023-05-07 16:39 | XMS_ITS | Continuity of Care Document ---
Author Name Unknown Organization [facility] ter Address [address] [place] [address]- Care Team Providers Care Building Serviceman Name Role Phone Binu Campos MD Primary Care Physician Encounter [facility] Date(s): 12/03/19 - 12/03/[address] [address]- [facility] Attending Physician: Binu Campos MD Allergies, Adverse [...] incident/VIS given 8Admin Note: given by Jaki Mcintyre Note: [facility] Medications amLODIPine-benazepril 5 [...] 135 each, 0 Refills, Maintenance, 11/27/19 8:40:00 [facility], Labwork and office visit [...]
--- OUTSIDE RECORDS SUMMARY | 2023-05-07 16:39 | XMS_ITS | Continuity of Care Document ---
Author Name Unknown Organization [facility] Address [address] [place] [address]- Care Team Providers Care Dish Maker Name Role Phone Binu Campos MD Primary Care Physician Encounter [facility] [place] [place] Date(s): 03/30/22 - 04/06/22 [facility] [address] [place], [place] [address] Encounter Diagnosis CVA - Cerebrovascular accident(Discharge Diagnosis) - 03/30/22 Cancer of prostate(Discharge Diagnosis) - 03/30/22 Carotid artery stenosis(Discharge Diagnosis) - 03/30/22 Hyperglycemia(Discharge Diagnosis) - 03/30/22 Hyperlipidemia(Discharge Diagnosis) - 03/30/22 Hypertension(Discharge Diagnosis) - 03/30/22 Hypothyroidism(Discharge Diagnosis) - 03/30/22 Gastroesophageal reflux disease with hiatal hernia(Discharge Diagnosis) - 03/30/22 Irritable bowel(Discharge Diagnosis) - 03/30/22 Lumbar spinal stenosis(Discharge Diagnosis) - 03/30/22 Sleep apnea(Discharge Diagnosis) - 03/30/22 Attending Physician: Binu Campos MD Allergies, Adverse [...] [facility] 2Admin Note: WORK 3Result Comment: [11/27/2018] [facility] 4Result Comment: [08/12/2015] given w/o incident 5Result [...] MOUTH DAILY., # 90 capsule, 1 Refills, [facility], 165.1, cm, 03/11/21 15:11:00 EDT, Height, 68, kg, 12/04/19 9:25:00 EST, Dry Weight Start Date: 10/16/21 Status: Ordered Euthyrox 25 mcg (0.025 mg) oral tablet 1.5 tablet, By Mouth, Daily, # 135 tablet, 3 Refills, [facility], 165.1, cm, 03/11/21 15:11:00 [...] Informant CVA - Cerebrovascular accident Discharge Diagnosis 03/30/22 Cancer of prostate Discharge Diagnosis 03/30/22 Carotid artery stenosis Discharge Diagnosis 03/30/22 Hyperglycemia Discharge Diagnosis 03/30/22 Hyperlipidemia Discharge Diagnosis 03/30/22 Hypertension Discharge Diagnosis 03/30/22 Hypothyroidism Discharge Diagnosis 03/30/22 Gastroesophageal reflux disease with hiatal hernia Discharge Diagnosis 03/30/22 Irritable bowel Discharge Diagnosis 03/30/22 Lumbar spinal stenosis Discharge Diagnosis 03/30/22 Sleep apnea Discharge Diagnosis 03/30/22 Vital Signs Most recent to oldest [Reference Range]: 1 Height 165.1 cm (03/30/22 2:01 PM) Weight 71.5 kg (03/30/22 2:01 PM) Oxygen Saturation [94-100 %] 97 % (03/30/22 2:01 PM) Pulse Rate [55-90 bpm] 79 bpm (03/30/22 2:01 PM) Body Mass Index [18.5-24.99] 26.23 *H* (03/30/22 2:01 PM) Blood Pressure [90-138/55-84 mm Hg] 118/ 58mm Hg (03/30/22 2:01 PM) Blood pressure sites Arm, left (03/30/22 2:01 PM) Social History Social History Type Response Smoking Status Never smoker; Tobacc o user in household: No entered on: 02/11/14 Sex
--- OUTSIDE RECORDS SUMMARY | 2023-05-07 16:39 | XMS_ITS | Patient Health Record ---
Author Name Unknown [facility] Address [address] [place] [address] Care Team Providers Care Project Program Manager Name Role Phone Binu Campos MD Primary Care Provider Christian Day Unavailable [phone] ALLERGIES Allergen (clinical drug ingredient) Drug/Non Drug Allergy documented on EMR Reaction Allergy Type Onset Date Status morphine Morphine Unknown Drug Allergy Active REASON FOR REFERRAL No Information MEDICATIONS Medication SIG (Take, Route, Frequency, Duration) Notes Start Date End Date Status amLODIPine Benzoate 25MG Active Atorvastatin Calcium 80 MG 1 tablet Oral ly Once a day for 30 day(s) Active DULoxetine HCl 30 MG 1 capsule Orally On ce a day for 30 day(s) Active Levothyroxine Sodium 25 MCG 1 tablet in the morning on an empty stomach Orally Once a day for 30 day(s) Active Omeprazole 40 MG 1 capsule 30 minutes before morning meal Orally Once a day for 30 day(s) Active IMMUNIZATIONS Vaccine Route Administration Date Status Comme nts COVID-19 Pfizer BioNTech Vaccine Unknown 06/28/2022 Administered 11/10/20,12/12/20 07/28/21,01/28/22 SOCIAL HISTORY Tobacco Use: Social History Observation Description Date Details (start date - stop date) Former Smoker NA - NA Sex Assigned At : Social History Observation Description Sex Assigned At Unknown Tobacco Use/Smoking Question Answer Notes Are you a: former smoker Alcohol Screen Question Answer Notes Did you have a drink contain ing alcohol in the past year? Yes How often did you have a dri nk containing alcohol in the past year? 4 or more times a week (4 points) Points 4 Interpretation Positive Tobacco use other than smoking: Question Answer Notes Are you an other tobacco user? No PROBLEMS Problem Type ICD Code Onset Dates Problem Status W/U Status Risk SNOMED Code Notes Problem Other hammer toe(s) (acquired), right foot (M20.41) Active confirmed Acquired hammer toe of right foot ([id number]) Problem Hallux rigidus, right foot (M20.21) Active confirmed Acquired hallux rigidus (2200601) Encounters Encounter Location Date Provider Diagnosis [facility] [address] 10/06/2022 Christian Sandhu Pain in left foot M79.672 ; Pain in right foot M79.671 ; Ingrowing nail L60.0 ; Other hammer toe(s) (acquired), right foot M20.41 and Hallux rigidus, right foot M20.21 [facility] [address] [facility] [address] [place] [address] 10/26/2022 [facility] [address] 10/28/2022 Christian Sandhu Pain in left foot M79.672 ; Pain in right foot M79.671 ; Ingrowing nail L60.0 ; Other hammer toe(s) (acquired), right foot M20.41 and Hallux rigidus, right foot M20.[address] [address] 11/11/2022 Christian Sandhu Pain in left foot M79.672 ; Pain in right foot M79.671 ; Ingrowing nail L60.0 ; Other hammer toe(s) (acquired), right foot M20.41 and Hallux rigidus, right foot M20.21 ASSESSMENTS Encounter Date Diagnosis Assessment Notes Treatment Notes Treatment Clinical Notes 10/06/2022 Pain in right foot (ICD-10 - M79.671) 10/06/2022 Pain in left foot (ICD-10 - M79.672) 10/28/2022 Pain in right foot (ICD-10 - M79.671) 10/28/2022 Pain in left foot (ICD-10 - M79.672) 11/11/2022 Pain in right foot (ICD-10 - M79.671) 11/11/2022 Pain in left foot (ICD-10 - M79.672) 10/06/2022 Ingrowing nail (ICD-10 - L60.0) 10/28/2022 Ingrowing nail (ICD-10 - L60.0) 11/11/2022 Ingrowing nail (ICD-10 - L60.0) 11/11/2022 Other hammer toe(s) (acquired), right foot (ICD-10 - M20.41) 10/28/2022 Other hammer toe(s) (acquired), right foot (ICD-10 - M20.41) 10/06/2022 Other hammer toe(s) (acquired), right foot (ICD-10 - M20.41) 10/06/2022 Hallux rigidus, right foot (ICD-10 - M20.21) 10/28/2022 Hallux rigidus, right foot (ICD-10 - M20.21) 11/11/2022 Hallux rigidus, right foot (ICD-10 - M20.21) PLAN OF TREATMENT Pending Test Test Name Order Date X ray : Foot, right 3V 10/06/2022 Insurance Providers Payer Name Payer Address Payer Phone Subscriber Number Group Number Insured Name Patient Relationship to Insured Coverage Start Date Coverage End Date Medicare National [employer] [address] [place] [address] [id number] Jeff Levin Self - patient is the insured Med [facility] [address] [place] [address] [id number] Jeff Levin Self - patient is the insured MEDICAL (GENERAL) HISTORY Medical History History ICD Code Cancer Depression Hiatal hernia Stroke Measles Mumps Chicken pox Surgical History Surgery Date(Month/Year) prostatectomy 01/16/12 carotid surgery 2018
--- OUTSIDE RECORDS SUMMARY | 2023-05-07 16:39 | XMS_ITS | Continuity of Care Document ---
Author Name [facility] Address [address] [place] [address] Organization [facility] Address [address] [place] [address] Support Name Relationship Address Phone AntonBinu lucio Primary Care Provider Unknown Rashid Slaughter Attending Provider [address] [address] Binu Campos Primary Care Provider Unknown Trino Beach Attending Provider [address] [address] Allergies, Adverse Reactions, Alerts Allergen Type Severity [...] Date Discharge/Departure Date Attending Provider Departed Clinical [place] [address] [facility] September 03, 2019 11:37am September 03, 2019 11:38am Trino Felder Functional Status No known functional status. Immunizations No known immunizations. Payers Payer Name Policy Type Covered Democrat Covered Democrat Id Relationship Subscriber Subscriber Id Medex Commercial Jeff Levin [id number] Self / Same As Patient Jeff Levin [id number] Medicare A&B Medicare Primary Jeff Alvareztheresa [id number] Self / Same As Patient Jeff Levin [id number] Self Pay Personal Payment ([place] - No Insurance) Plan of Care No Known Plan of Care Information Social History No known social history. Vital Signs No known vital signs results.
[2023-05-07 16:58] LABS: Lactic Acid 1.3 mmol/L (0.5-2.0)
[2023-05-07 17:03] LABS: Anion Gap 17 (12-20); Blood Urea Nitrogen 28 mg/dL (9-16); Calcium 10.3 mg/dL (8.4-10.2); Carbon Dioxide 24 mmol/L (22-29); Chloride 105 mmol/L (96-108); Creatinine Clr Calc Pharmacy 52.7; Estimated Glomerular Filt Rate > 60; Glucose Random 97 mg/dL (60-115); Potassium 4.9 mmol/L (3.3-5.1); Sodium 141 mmol/L (135-145)
[2023-05-07] MEDS: Lidocaine HCl 1 % MPF 5 ML VIAL INFILTRATI (18:41)
[2023-05-07] MEDS: Amoxicillin/Potassium Clav 875 MG TABLET PO (18:57)
[2023-05-07] MEDS: Bacitracin Oint 0.9 GM PACKET 1 APPL TOPICAL (19:42)
== END 2023-05-07 19:43 | disposition home or self-care (01) ==
PROVIDERS: Registered Nurse Emergency; Emergency Provider Emergency Medicine; PCP Internal Medicine
DX: R58 Hemorrhage, not elsewhere classified (principal); S61.217A Laceration without foreign body of left little finger without damage to nail, initial encounter; S61.215A Laceration without foreign body of left ring finger without damage to nail, initial encounter; W31.89XA Contact with other specified machinery, initial encounter; Y93.89 Activity, other specified; Y92.9 Unspecified place or not applicable
CPT/HCPCS: 12001; 36415; 73130; 80048; 83605; 87040; 99284